=== PATIENT | female | born 1970 | race Caucasian/White ===

== ENCOUNTER 2017-10-25 08:22 | Emergency (ER) | payer OTHER ==
[~2017-10-25] VITALS: Ht 175.3 cm; Wt 90.9 kg
[2017-10-25 08:41] VITALS: Ht 175.3 cm; Wt 90.9 kg
[2017-10-25] MEDS ORDERED: MULTIPLE VITAMI1 TA1 PO (08:43)
[2017-10-25] MEDS ORDERED: PROZAC10 MG PO (08:43)
[2017-10-25] MEDS ORDERED: BIOTIN5 MG PO (08:43)
[2017-10-25 09:13] LABS: APPEARANCE CLEAR (CLEAR); BILIRUBIN NEGATIVE (NEGATIVE); COLOR DY (YELLOW); GLUCOSE NEGATIVE (NEGATIVE); KETONE NEGATIVE (NEGATIVE); NITRITE NEGATIVE (NEGATIVE); PROTEIN NEGATIVE (NEGATIVE); UROBILINOGEN NORMAL (NORMAL)
[2017-10-25 09:15] LABS: RED CELLS - URINE 25-50 /hpf (0-5)
[2017-10-25 09:16] LABS: BACTERIA FEW /hpf (NONE SEEN); EPITHELIAL CELLS OCC /hpf (0-5)
[2017-10-25 09:17] LABS: HYALINE CAST RARE /lpf (NONE SEEN)
[2017-10-25 09:19] LABS: WHITE CELLS - URINE OCC /hpf (0-5)
[2017-10-25 09:21] LABS: BASOPHILS 0.4 % (0-2); EOSINOPHILS 2.6 % (0-7); HEMATOCRIT 43.8 % (36.0-48.0); HEMOGLOBIN 15.1 g/dL (12-16); IMMATURE GRANULOCYTES 0.6 % (0-5); LYMPHOCYTES 27.4 % (15-50); MCH 31.7 pg (26.0-34.0); MCHC 34.5 g/dL (31.0-37.0); MCV 91.8 fL (80.0-100.0); MEAN PLATELET VOLUME 10.3 fL (7.4-10.4); MONOCYTES 7.2 % (2-11); NEUTROPHILS 61.8 % (40-80); PLATELET COUNT 191 10x3/uL (130-400); RBC 4.77 10x6/uL (4.00-5.40); RDW 12.3 % (11.5-14.5); WBC 5.4 10x3/uL (4.8-10.8)
[2017-10-25 09:22] LABS: ALBUMIN 4.1 g/dL (3.4-5.0); ALKALINE PHOSPHATASE 108 U/L (46-116); ALT (SGPT) 68 U/L (10-68); BILIRUBIN - TOTAL 0.62 mg/dL (0.2-1.3); CALC OSMOLALITY 288 mosm/kg (275-300); CALCIUM 9.1 mg/dL (8.5-10.1); CARBON DIOXIDE 29.7 mmol/L (21.0-32.0); CHLORIDE - SERUM 106 mmol/L (98-107); CREATININE - SERUM 0.8 mg/dL (0.6-1.3); GLUCOSE 141 mg/dL (74-106); POTASSIUM - SERUM 4.4 mmol/L (3.5-5.1); PROTEIN - SERUM 7.6 g/dL (6.4-8.2); SODIUM 143 mmol/L (136-145); UREA NITROGEN 17 mg/dL (7-18); eGFR NON AFRICAN AMERICAN 81 mL/min (90-120)
[2017-10-25] MEDS ORDERED: ZOFRAN ODT4 MG/UDTAB PO (11:56)
[2017-10-25] MEDS ORDERED: FLOMAX0.4 MG PO (11:56)
[2017-10-25] MEDS ORDERED: HYDROCODONE-APA1 TAB PO (11:56)
[2017-10-25 12:08] VITALS: BP 126/87
== END 2017-10-25 12:09 | disposition home or self-care (01) ==
LOC: D.ER 08:22
PROVIDERS: Family Medicine
DX: N20.1 Calculus of ureter (principal)

== ENCOUNTER 2019-01-05 09:07 | Emergency (ER) | payer OTHER ==
[~2019-01-05] VITALS: Ht 175.3 cm; Wt 90.9 kg
[~2019-01-05 09:07] MED LIST: BIOTIN5 MG PO; FLOMAX0.4 MG PO; HYDROCODONE-APA1 TAB PO; MULTIPLE VITAMI1 TA1 PO; PROZAC10 MG PO; ZOFRAN ODT4 MG/UDTAB PO
[2019-01-05 09:09] VITALS: Ht 175.3 cm; Wt 90.9 kg
[2019-01-05] MEDS ORDERED: CETIRIZINE HCL5 M1 PO (09:10)
[2019-01-05] MEDS ORDERED: SILVADENE20 GM TP (09:55)
[2019-01-05] MEDS ORDERED: HYDROCODONE-A1 UDTA2 PO (09:55)
[2019-01-05 10:12] VITALS: BP 144/50
== END 2019-01-05 10:13 | disposition home or self-care (01) ==
LOC: D.ER 09:07
DX: T23.232A Burn of second degree of multiple left fingers (nail), not including thumb, initial encounter (principal); X17.XXXA Contact with hot engines, machinery and tools, initial encounter; Y93.89 Activity, other specified; Y92.89 Other specified places as the place of occurrence of the external cause